=== PATIENT | female | born 1995 | race American Indian/Alaskan Native ===

== ENCOUNTER 2018-11-27 23:11 | Emergency (ER) | payer MEDICAID ==
[2018-11-27 23:18] VITALS: BP 114/64
[2018-11-27] MEDS ORDERED: BENADRYL PO ONE (23:36)
[2018-11-27] MEDS ORDERED: DECADRON IM ONE (23:36)
[2018-11-27] MEDS ORDERED: REGLAN PO ONE (23:36)
[2018-11-27] MEDS ORDERED: TYLENOL PO ONE (23:37)
--- NOTE | 2018-11-28 00:21 | Emergency Department Report ---
ED Headache HPI - General Chief Complaint: Headache Stated Complaint: SEVERE MIGRAINE/VOMITING/NAUSEA Time Seen by Provider: 11/27/18 23:36 - History of Present Illness Initial Comments: Patient is a 23-year-old -[place] female who presents for a right frontal headache . Radiates from occipital to right temporal there is no nausea vomiting no photophobia headaches are recurrent for the last 3 months usually treated with Fioricet however patient is a Fioricet and has a neurology appointment pending in January requesting an appointment this headache is in the usual site and intensity as all other headaches or has been no fall or injury or trauma Timing/Duration: other (3 days ) Quality: moderate Modifying Factors: improves with: movement Associated Symptoms: denies symptoms Allergies/Adverse Reactions: Allergies No Known Allergies Allergy (Verified 01/29/15 01:32) Home Medications: Ambulatory Orders HYDROcodone/APAP 7.5-325 [[place] 7.5/325] 1 each PO Q6HR PRN #20 tablet 02/25/15 Ondansetron [Zofran TAB] 4 mg PO Q8HR PRN #20 tablet 07/19/15 Oxycodone HCl/Acetaminophen [Percocet 7.5/325 mg] 1 each PO Q6HR PRN #20 tablet 07/19/15 Tablet 1 tab PO DAILY 07/19/15 Acetaminophen [Acetaminophen TAB] 1,000 mg PO Q6HR PRN #30 tablet 11/28/18 Metoclopramide [Reglan] 10 mg PO Q6H PRN #30 tablet 11/28/18 diphenhydrAMINE [Benadryl CAP] 25 mg PO Q6HR PRN #30 capsule 11/28/18 traMADol [Ultram] 50 mg PO Q6HR PRN #12 tablet 11/28/18 ED Review of Systems ROS: Stated complaint: SEVERE MIGRAINE/VOMITING/NAUSEA Other details as noted in HPI Constitutional: denies: chills, fever Eyes: denies: eye pain, eye discharge, vision change ENT: denies: ear pain, throat pain Respiratory: denies: cough, shortness of breath, wheezing Cardiovascular: denies: chest pain, palpitations Endocrine: no symptoms reported Gastrointestinal: denies: abdominal pain, nausea, vomiting, diarrhea Genitourinary: denies: urgency, dysuria, discharge Musculoskeletal: denies: back pain, joint swelling, arthralgia Skin: denies: rash, lesions Neurological: headache. denies: weakness, numbness, paresthesias, confusion, abnormal gait, vertigo Psychiatric: denies: anxiety, depression Hematological/Lymphatic: denies: easy bleeding, easy bruising ED Past Medical Hx - Past Medical History Previous Medical History?: Yes Hx Hypertension: No Hx Diabetes: No Hx Deep Vein Thrombosis: No Hx Renal Disease: No Hx Sickle Cell Disease: No Hx Seizures: No Hx Asthma: No Hx HIV: No Additional medical history: Gallstones - Surgical History Past Surgical History?: Yes - Social History Smoking Status: Never Smoker Substance Use Type: None - Medications Home Medications: Home Medications Medication Instructions Recorded Confirmed Last Taken Type HYDROcodone/APAP 7.5-325 [[place] 1 each PO Q6HR PRN #20 tablet 02/25/15 07/19/15 Unknown Rx 7.5/325] Ondansetron [Zofran TAB] 4 mg PO Q8HR PRN #20 tablet 07/19/15 Unknown Rx Oxycodone HCl/Acetaminophen 1 each PO Q6HR PRN #20 tablet 07/19/15 Unknown Rx [Percocet 7.5/325 mg] Tablet 1 tab PO DAILY 07/19/15 07/19/15 Unknown History Acetaminophen [Acetaminophen TAB] 1,000 mg PO Q6HR PRN #30 tablet 11/28/18 Unknown Rx Metoclopramide [Reglan] 10 mg PO Q6H PRN #30 tablet 11/28/18 Unknown Rx diphenhydrAMINE [Benadryl CAP] 25 mg PO Q6HR PRN #30 capsule 11/28/18 Unknown Rx traMADol [Ultram] 50 mg PO Q6HR PRN #12 tablet 11/28/18 Unknown Rx ED Physical Exam - General Limitations: No Limitations General appearance: alert, in no apparent distress - Head Head exam: Present: atraumatic, normocephalic - Eye Eye exam: Present: normal appearance, PERRL, EOMI. Absent: conjunctival injection, nystagmus Pupils: Present: normal accommodation - ENT ENT exam: Present: normal orophraynx, mucous membranes moist, TM's normal bilaterally, normal external ear exam - Neck Neck exam: Present: normal inspection, full ROM. Absent: tenderness, meningismus, lymphadenopathy, thyromegaly - Expanded Neck Exam Expanded Neck exam: Absent: tenderness, midline deformity, anterior neck swelling, thyroid mass, carotid bruit, tracheal deviation - Respiratory Respiratory exam: Present: normal lung sounds bilaterally. Absent: respiratory distress, wheezes, stridor, chest wall tenderness - Cardiovascular Cardiovascular Exam: Present: regular rate, normal rhythm, normal heart sounds. Absent: systolic murmur, diastolic murmur, rubs, gallop - GI/Abdominal GI/Abdominal exam: Present: soft, normal bowel sounds - Rectal Rectal exam: Present: deferred - Extremities Exam Extremities exam: Present: normal inspection, full ROM, tenderness, normal capillary refill. Absent: pedal edema, joint swelling, calf tenderness - Back Exam Back exam: Present: normal inspection, full ROM. Absent: CVA tenderness (R), CVA tenderness (L), muscle spasm, paraspinal tenderness, vertebral tenderness, rash noted - Neurological Exam Neurological exam: Present: alert, CN II-XII intact, normal gait, reflexes normal. Absent: oriented X3, motor sensory deficit - Psychiatric Psychiatric exam: Present: normal affect, normal mood - Skin Skin exam: Present: warm, dry, intact, normal color. Absent: rash ED Course Vital Signs 11/27/18 23:16 Temperature 98.1 F Pulse Rate 80 Respiratory 18 Rate Blood Pressure 114/64 ED Medical Decision Making - Medical Decision Making headache improved plan dc to home with benadryl, reglan, and tylenol pt will follow up with neurology in 2-3 days pt verbalized agreement and understanding of discharge plan. Critical care attestation.: If time is entered above; I have spent that time in minutes in the direct care of this critically ill patient, excluding procedure time. ED Disposition Clinical Impression: Headache Qualifiers: Headache type: unspecified Headache chronicity pattern: acute headache Intractability: not intractable Qualified Code(s): R51 - Headache Disposition: DC-01 TO HOME OR SELFCARE Is pt being admited?: No Does the pt Need Aspirin: No Condition: Stable Instructions: Acute Headache (ED) Prescriptions: Acetaminophen [Acetaminophen TAB] 1,000 mg PO Q6HR PRN #30 tablet PRN Reason: Headache diphenhydrAMINE [Benadryl CAP] 25 mg PO Q6HR PRN #30 capsule PRN Reason: Headache Metoclopramide [Reglan] 10 mg PO Q6H PRN #30 tablet PRN Reason: Headache traMADol [Ultram] 50 mg PO Q6HR PRN #12 tablet PRN Reason: severe Pain Referrals: RUEL SO MD [Referring] - 2-3 Days Forms: Work/School Release Form(ED) Time of Disposition: 00:33
== END 2018-11-28 00:48 | disposition left against medical advice (07) ==
LOC: ED 23:11
DX: R51 Headache (principal)
CPT/HCPCS: 99282; J1100